=== PATIENT | female | born 1980 | race Caucasian/White ===

== ENCOUNTER → 2023-01-03 08:41 | Outpatient (BNVA) | payer MEDICAID, SELFPAY | PROVIDERS: PCP Family Medicine; Referring Provider Nurse Practitioner Family; Visit Provider Psychiatry & Neurology Neurology | DX: M54.2 Cervicalgia (principal); M79.603 Pain in arm, unspecified; M79.601 Pain in right arm; R29.898 Other symptoms and signs involving the musculoskeletal system; S29.011A Strain of muscle and tendon of front wall of thorax, initial encounter; X58.XXXA Exposure to other specified factors, initial encounter | CPT/HCPCS: 99203 ==

== ENCOUNTER 2023-02-06 15:01 | Outpatient (CLI) | payer MEDICAID, SELFPAY ==
--- NOTE | 2023-02-06 15:15 | MR_ITS ---
WS: [id number] MRI CERVICAL SPINE NONCONTRAST HISTORY: R52 - Pain, unspecified COMPARISON: None available. Technique: Multiplanar, multisequence noncontrast imaging of the cervical spine. Normal cervical alignment with no compression fracture or significant disc space narrowing. Signal within the cervical cord is normal. Visualized posterior fossa is unremarkable. Craniocervical junction, C1 and C2 relationship, odontoid process and soft tissues are normal. C2-C3: Normal. C3-C4: Normal. C4-C5: Normal. C5-C6: Mild disc bulging. No focal stenosis. Very slight narrowing of the LEFT foramen. C6-C7: Normal. C7-T1: Normal. Paraspinal soft tissue are normal. IMPRESSION: No significant central or foraminal stenosis. No disc protrusions.
== END 2023-02-06 15:02 | disposition home or self-care (01) ==
PROVIDERS: PCP Family Medicine; Visit Provider Psychiatry & Neurology Neurology
DX: M54.2 Cervicalgia (principal)
CPT/HCPCS: 72141

== ENCOUNTER → 2023-02-12 14:21 | Outpatient (BNVA) | payer MEDICAID, SELFPAY | PROVIDERS: PCP Family Medicine; Visit Provider Psychiatry & Neurology Neurology | DX: R29.898 Other symptoms and signs involving the musculoskeletal system (principal); M79.601 Pain in right arm; S29.011A Strain of muscle and tendon of front wall of thorax, initial encounter; Y99.9 Unspecified external cause status | CPT/HCPCS: 95885; 95912; 95913 ==

== ENCOUNTER → 2023-02-18 13:50 | Outpatient (BNVA) | payer MEDICAID, SELFPAY | PROVIDERS: PCP Family Medicine; Visit Provider Psychiatry & Neurology Neurology | DX: M79.2 Neuralgia and neuritis, unspecified (principal); S29.011A Strain of muscle and tendon of front wall of thorax, initial encounter; M79.601 Pain in right arm; Y99.9 Unspecified external cause status | CPT/HCPCS: 99212 ==

== ENCOUNTER → 2023-05-21 14:14 | Outpatient (BNVA) | payer MEDICAID, SELFPAY | PROVIDERS: PCP Family Medicine; Visit Provider Psychiatry & Neurology Neurology | DX: M79.601 Pain in right arm (principal); M79.2 Neuralgia and neuritis, unspecified; R29.898 Other symptoms and signs involving the musculoskeletal system | CPT/HCPCS: 99212 ==

== ENCOUNTER → 2023-08-13 13:32 | Outpatient (BNVA) | payer MEDICAID, SELFPAY | PROVIDERS: PCP Family Medicine; Visit Provider Psychiatry & Neurology Neurology | DX: M79.601 Pain in right arm (principal); R29.898 Other symptoms and signs involving the musculoskeletal system; M79.2 Neuralgia and neuritis, unspecified | CPT/HCPCS: 99212 ==

== ENCOUNTER 2023-09-03 12:45 | Outpatient (CLI) | payer MEDICAID, SELFPAY ==
--- NOTE | 2023-09-03 12:45 | USCV_ITS ---
Daniela Ballard Age: 43 Gender: F : 1980 Exam Date: 09/03/2023 13:07 Ordering Phys: Manuel Adame MD Technologist: CT Exam Location: [facility] [place]_ Indication: PROCEDURES: Venous duplex imaging was performed in only the right upper extremity. In addition, the radial vein and ulnar vein. In addition, the basilic vein and cephalic vein. FINDINGS: no dvt ct/js CONCLUSIONS No evidence of thrombus of the right upper extremity veins. Timothy Harrell MD (Electronically Signed) Final Date: 03 September 2023 14:36 S
== END 2023-09-03 12:53 | disposition home or self-care (01) ==
PROVIDERS: PCP Family Medicine; Visit Provider Psychiatry & Neurology Neurology
DX: S29.011A Strain of muscle and tendon of front wall of thorax, initial encounter (principal); R29.898 Other symptoms and signs involving the musculoskeletal system; M79.2 Neuralgia and neuritis, unspecified; M79.601 Pain in right arm
CPT/HCPCS: 93971